=== PATIENT | male | born 1955 | race Native Hawaiian/Other Pacific Islander ===

== ENCOUNTER → 2024-01-15 | Outpatient (CLI) | payer MEDICARE ==
[2024-01-15 09:37] LABS: Basophils # (A) 0.1 k/uL (0-0.2); Basophils % (A) 1 %; Eosinophils # (A) 0.4 k/uL (0-0.7); Eosinophils % (A) 4 %; HCT 43.1 % (39.0-53.0); HGB 13.4 gm/dL (13.0-17.5); Hypochromasia Slight; Lymphocytes # (A) 2.1 k/uL (1.0-4.8); Lymphocytes % (A) 19 %; MCH 27.1 pg (25.0-35.0); MCHC 31.1 g/dL (31.0-37.0); MCV 87.1 fL (80.0-100.0); Mean Platelet Volume 8.6; Monocytes # (A) 0.8 k/uL (0-1.0); Monocytes % (A) 7 %; Neutrophils # (A) 7.7 k/uL (1.3-7.7); Neutrophils % (A) 68 %; Platelet Count 276 k/uL (150-450); RBC 4.95 m/uL (4.30-5.90); RDW 15.8 % (11.5-15.5); WBC 11.3 k/uL (3.8-10.6)
[2024-01-15 09:51] LABS: INR 0.9 (<1.2); Partial Thromboplastin Time 26.9 sec (22.0-30.0); Prothrombin Time 9.8 sec (10.0-12.5)
[2024-01-15 10:14] LABS: African American GFR (CKD) 31 (>60 ml/min/1.73 sqM); Anion Gap 9 mmol/L; Blood Urea Nitrogen 35 mg/dL (9-20); Carbon Dioxide 24 mmol/L (22-30); Chloride 113 mmol/L (98-107); Non-African American GFR(CKD) 27 (>60 ml/min/1.73 sqM); Potassium 4.6 mmol/L (3.5-5.1); Sodium 146 mmol/L (137-145)
== END | disposition home or self-care (01) ==
LOC: LABWHC1 08:50
PROVIDERS: ATTEND Internal Medicine Nephrology
DX: N18.32 Chronic kidney disease, stage 3b (principal)
CPT/HCPCS: 36415; 80051; 82565; 84520; 85025; 85610; 85730; 86850; 86900; 86901

== ENCOUNTER 2024-01-16 08:01 | Day surgery (SDC) | payer BC, MEDICARE ==
[2024-01-16] MEDS: ALPRAZolam 0.25 MG TAB PO PRN (08:50)
[2024-01-16] MEDS: DESMOPRESSIN ACETATE 32 MCG in SODIUM CHLORIDE 0.9% 50 ML IVPB ONE (09:13)
[2024-01-16 10:17] VITALS: TEMP 98
[2024-01-16] MEDS: HYDROmorphone 0.5 MG/0.5 ML SYRINGE IVP PRN (10:18)
[2024-01-16 11:16] VITALS: RESP 16
--- NOTE | 2024-01-16 12:01 | CT ---
EXAMINATION TYPE: CT biopsy renal LT DATE OF EXAM: 01/16/2024 11:02 AM CLINICAL INDICATION:Male, 68 years old with history of N18.32 CHRONIC KIDNEY DISEASE, STAGE 3B; chron ic renal dx COMPARISON: None CT DLP: 2606 mGycm, Automated exposure control for dose reduction was used. Contrast used: mL of , none Oral contrast used: none ATTENDING: Dr. Ahsan Martin TECHNIQUE: CT guided percutaneous left inferior renal random kidney biopsy using coaxial method. Moderate consci ous sedation was used. One or more CT dose reduction strategies were utilized during this examination . Total CT dose 2606 mGycm. FINDINGS: The procedure was explained to the patient including risks of bleedin, bruising, infection, damage to nearby organs and need for additional therapy including potential surgery. All questions were answe red and consent was obtained. The previous studies were reviewed. The patient was placed on the CT couch in the supine position. The overlying skin was marked and prepped using sterile method. Timeout was taken per protocol. Follo wing administration of conscious sedation and local anesthesia a 17 gauge coaxial needle was introd uced on the inferior kidney. The coaxial needle tip was directed into the cortex of the kidney with CT guidance. Multiple 18 gauge coaxial biopsies were then obtained. Following the procedure the n eedle was removed and sterile dressing was applied to the percutaneous site. Post biopsy imaging dem onstrated small perinephric hematoma. Patient was taken for postprocedure observation in stable condi tion. IMPRESSIONS: Status post percutaneous left inferior renal kidney cortex random biopsy. As described above. Patholo gy results pending.
[2024-01-16 16:40] VITALS: BP 162/78; PULSE 75
== END 2024-01-16 14:40 | disposition home or self-care (01) ==
LOC: RADPROMAIN 08:01
PROVIDERS: ATTEND Internal Medicine
DX: N18.32 Chronic kidney disease, stage 3b (principal)
CPT/HCPCS: 36415; 50200; 77012; J2597; J1170